=== PATIENT | male | born 1950 | race Caucasian/White ===

== ENCOUNTER 2018-12-11 15:00 | Outpatient (CLI) | payer OTHER ==
[2018-12-11 18:51] LABS: ALBUMIN/GLOBULIN RATIO 0.9 (1.0-2.2); ALKALINE PHOSPHATASE 79 IU/L (42-121); ALT ALANINE AMINOTRANSFERASE < 10 IU/L (10-60); AST ASPARTATE AMINOTRANSFERASE 17 IU/L (10-42); BILIRUBIN,TOTAL 0.7 mg/dL (0.2-1.0); BUN - BLOOD UREA NITROGEN 17 mg/dL (6-20); CALCIUM 9.4 mg/dL (8.5-10.3); CARBON DIOXIDE - CO2 26 mmol/L (21-32); CHLORIDE 100 mmol/L (101-111); CHOLESTEROL 213 mg/dL; CREATININE 1.1 mg/dL (0.6-1.2); GFR - MDRD 67 (>89); GLUCOSE 108 mg/dL (70-100); HDL CHOLESTEROL 70 mg/dL; LDL CHOLESTEROL,CALCULATED 122 mg/dL; LDL CHOLESTEROL,DIRECT 131 mg/dL; LDL/HDL RATIO 1.7 (<3.6); SODIUM 138 mmol/L (135-145); TOTAL PROTEIN 8.4 g/dL (6.7-8.2); VLDL CHOLESTEROL 21 mg/dL
== END 2018-12-11 15:01 | disposition home or self-care (01) ==
LOC: LAB.F 15:00
PROVIDERS: ATTEND Internal Medicine Cardiovascular Disease
DX: N18.3 Chronic kidney disease, stage 3 (moderate) (principal); I10 Essential (primary) hypertension; I50.32 Chronic diastolic (congestive) heart failure; E78.2 Mixed hyperlipidemia; I25.10 Atherosclerotic heart disease of native coronary artery without angina pectoris
CPT/HCPCS: 36415; 80053; 80061; 83721

== ENCOUNTER 2019-06-14 11:30 | Outpatient (CLI) | payer OTHER ==
[2019-06-14 19:45] LABS: SODIUM 140 mmol/L (135-145)
[2019-06-14 19:46] LABS: ALKALINE PHOSPHATASE 88 IU/L (42-121); ALT ALANINE AMINOTRANSFERASE 10 IU/L (10-60); AST ASPARTATE AMINOTRANSFERASE 18 IU/L (10-42); BILIRUBIN,TOTAL 0.3 mg/dL (0.2-1.0); BUN - BLOOD UREA NITROGEN 11 mg/dL (6-20); CALCIUM 9.3 mg/dL (8.5-10.3); CARBON DIOXIDE - CO2 22 mmol/L (21-32); CHLORIDE 104 mmol/L (101-111); CREATININE 1.1 mg/dL (0.6-1.2); GFR - MDRD 67 (>89); GLUCOSE 99 mg/dL (70-100); TOTAL PROTEIN 8.3 g/dL (6.7-8.2)
[2019-06-14 19:47] LABS: ALBUMIN 4.1 g/dL (3.2-5.5); CHOL/HDL RATIO 2.6 (<5.0); CHOLESTEROL 195 mg/dL; HDL CHOLESTEROL 75 mg/dL; LDL CHOLESTEROL,CALCULATED 95 mg/dL; LDL/HDL RATIO 1.3 (<3.6); VLDL CHOLESTEROL 25 mg/dL
== END 2019-06-14 11:31 | disposition home or self-care (01) ==
LOC: LAB.S 11:30
PROVIDERS: ATTEND Internal Medicine Cardiovascular Disease
DX: I12.9 Hypertensive chronic kidney disease with stage 1 through stage 4 chronic kidney disease, or unspecified chronic kidney disease (principal); N18.3 Chronic kidney disease, stage 3 (moderate); E78.2 Mixed hyperlipidemia; I25.10 Atherosclerotic heart disease of native coronary artery without angina pectoris
CPT/HCPCS: 36415; 80053; 80061; 81599; 82172; 83721

== ENCOUNTER 2020-10-28 13:14 | Outpatient (CLI) | payer MEDICARE ==
[2020-10-28 20:14] LABS: ALBUMIN 4.2 g/dL (3.2-5.5); ALBUMIN/GLOBULIN RATIO 1.2 (1.0-2.2); ALKALINE PHOSPHATASE 69 IU/L (42-121); ALT ALANINE AMINOTRANSFERASE 15 IU/L (10-60); AST ASPARTATE AMINOTRANSFERASE 20 IU/L (10-42); BILIRUBIN,TOTAL 0.5 mg/dL (0.2-1.0); BUN - BLOOD UREA NITROGEN 23 mg/dL (6-20); CALCIUM 8.8 mg/dL (8.5-10.3); CARBON DIOXIDE - CO2 27 mmol/L (21-32); CHLORIDE 98 mmol/L (101-111); CHOL/HDL RATIO 2.2 (<5.0); CHOLESTEROL 116 mg/dL; CREATININE 1.7 mg/dL (0.6-1.2); GLUCOSE 80 mg/dL (70-100); HDL CHOLESTEROL 52 mg/dL; LDL CHOLESTEROL,CALCULATED 44 mg/dL; LDL/HDL RATIO 0.8 (<3.6); SODIUM 136 mmol/L (135-145); TOTAL PROTEIN 7.7 g/dL (6.7-8.2); VLDL CHOLESTEROL 20 mg/dL
== END 2020-10-28 13:15 | disposition home or self-care (01) ==
LOC: LAB.S 13:14
PROVIDERS: ATTEND Internal Medicine Cardiovascular Disease
DX: R07.9 Chest pain, unspecified (principal); I11.0 Hypertensive heart disease with heart failure; I47.1 Supraventricular tachycardia; I50.32 Chronic diastolic (congestive) heart failure
CPT/HCPCS: 36415; 80053; 80061; 81599; 82172; 83721

== ENCOUNTER 2021-01-23 12:40 | Outpatient (CLI) | payer MEDICARE ==
--- NOTE | 2021-01-23 13:35 | XRAY Report ---
PROCEDURE: Hip w/Pelvis 2-3V RT INDICATIONS: PAIN IN RIGHT HIP JOIN TECHNIQUE: AP pelvis with lateral view(s) of the bilateral hip(s). COMPARISON: None. FINDINGS: No acute fracture. Chronic femur deformity. There is anatomic alignment. Lumbar spondylosis and face t arthropathy. Mild bilateral hip joint degeneration. Scattered subchondral sclerosis and spurring. Soft tissues: The visualized bowel gas pattern is normal. No suspicious soft tissue calcifications. Vascular calcifications IMPRESSION: Bilateral mild hip joint degeneration. If the patient's pain or other symptoms persist, consider furt her evaluation with MRI. Reviewed by: Mauri Lambert MD on 01/23/2021 1:33 PM PST Approved by: Mauri Lambert MD on 01/23/2021 1:33 PM PST Station ID: [id number]
--- NOTE | 2021-01-23 13:59 | XRAY Report ---
PROCEDURE: Lumbar Spine 2 View INDICATIONS: LOW BACK PAIN TECHNIQUE: 2 views of the lumbar spine were acquired. COMPARISON: None. FINDINGS: No fracture identified. Levoscoliosis is noted. Scattered multilevel endplate spurring and diffuse fa cet arthropathy.Severe narrowing of the L3-L4 disc space. Mild narrowing of the L4-L5 and L5-S1 disc spaces. There is mild narrowing of the L1-L2 disc space. Retrolisthesis of L1 on L2 Scattered vascular calcifications. IMPRESSION: Multilevel lumbar disc degeneration and facet arthropathy most pronounced at L3-L4. Levoscoliosis Reviewed by: Mauri Lambert MD on 01/23/2021 1:58 PM PST Approved by: Mauri Lambert MD on 01/23/2021 1:58 PM PST Station ID: [id number]
[2021-01-23 15:26] LABS: BASOPHILS # (AUTO) 0.1 10^3/uL (0.0-0.1); BASOPHILS % (AUTO) 0.7 %; EOSINOPHILS # (AUTO) 0.6 10^3/uL (0.0-0.7); HCT - HEMATOCRIT 34.6 % (42.0-52.0); HGB - HEMOGLOBIN 10.6 g/dL (14.0-18.0); LYMPHOCYTES # (AUTO) 1.7 10^3/uL (1.5-3.5); LYMPHOCYTES % (AUTO) 12.2 %; MEAN CORPUSCULAR HEMOGLOBIN 29.8 pg (27.0-31.0); MEAN CORPUSCULAR HGB CONC 30.6 g/dL (32.0-36.0); MEAN CORPUSCULAR VOLUME 97.2 fL (80.0-94.0); MEAN PLATELET VOLUME 9.8 fL (7.4-11.4); MONOCYTES # (AUTO) 0.9 10^3/uL (0.0-1.0); MONOCYTES % (AUTO) 6.7 %; NEUTROPHILS # (AUTO) 10.4 10^3/uL (1.5-6.6); PLT - PLATELET COUNT 713 10^3/uL (130-450); RED BLOOD COUNT 3.56 10^6/uL (4.70-6.10); RED CELL DISTRIBUTION WIDTH 13.6 % (12.0-15.0); WHITE BLOOD COUNT 13.7 x10^3/uL (4.8-10.8)
[2021-01-23 15:58] LABS: ALBUMIN 3.4 g/dL (3.2-5.5); ALBUMIN/GLOBULIN RATIO 0.7 (1.0-2.2); BILIRUBIN,TOTAL 0.7 mg/dL (0.2-1.0); CALCIUM 9.6 mg/dL (8.5-10.3); CREATININE 1.7 mg/dL (0.6-1.2); CRP - C-REACTIVE PROTEIN 19.5 mg/dL (0-1.0); POTASSIUM 4.8 mmol/L (3.5-5.0)
== END 2021-01-23 12:41 | disposition home or self-care (01) ==
LOC: DI.S 12:40
PROVIDERS: ATTEND Physician Assistant
DX: M16.11 Unilateral primary osteoarthritis, right hip (principal); M43.16 Spondylolisthesis, lumbar region; M47.816 Spondylosis without myelopathy or radiculopathy, lumbar region; M51.36 Other intervertebral disc degeneration, lumbar region; M48.061 Spinal stenosis, lumbar region without neurogenic claudication; M25.551 Pain in right hip; R68.83 Chills (without fever); N08 Glomerular disorders in diseases classified elsewhere; M54.5 Low back pain
CPT/HCPCS: 36415; 80053; 85025; 85651; 86140

== ENCOUNTER 2021-02-10 09:45 | Outpatient (CLI) | payer MEDICARE | END 2021-02-10 09:46 | disposition critical access hospital (66) | LOC: EMS 09:45 | PROVIDERS: ATTEND Emergency Medicine | DX: R07.9 Chest pain, unspecified (principal) | CPT/HCPCS: A0425; A0427 ==

== ENCOUNTER 2021-02-10 10:14 | Emergency (ER) | payer MEDICARE ==
[2021-02-10 10:31] LABS: BASOPHILS # (AUTO) 0.1 10^3/uL (0.0-0.1); BASOPHILS % (AUTO) 0.5 %; EOSINOPHILS # (AUTO) 0.3 10^3/uL (0.0-0.7); EOSINOPHILS % (AUTO) 2.1 %; HCT - HEMATOCRIT 28.4 % (42.0-52.0); LYMPHOCYTES # (AUTO) 0.8 10^3/uL (1.5-3.5); LYMPHOCYTES % (AUTO) 5.7 %; MEAN CORPUSCULAR HEMOGLOBIN 29.5 pg (27.0-31.0); MEAN CORPUSCULAR HGB CONC 31.7 g/dL (32.0-36.0); MEAN CORPUSCULAR VOLUME 93.1 fL (80.0-94.0); MEAN PLATELET VOLUME 8.4 fL (7.4-11.4); MONOCYTES % (AUTO) 6.7 %; NEUTROPHILS # (AUTO) 12.3 10^3/uL (1.5-6.6); NEUTROPHILS % (AUTO) 84.5 %; PLT - PLATELET COUNT 602 10^3/uL (130-450); RED BLOOD COUNT 3.05 10^6/uL (4.70-6.10); RED CELL DISTRIBUTION WIDTH 13.9 % (12.0-15.0); WHITE BLOOD COUNT 14.6 x10^3/uL (4.8-10.8)
[2021-02-10 10:54] LABS: ALBUMIN 2.7 g/dL (3.2-5.5); ALBUMIN/GLOBULIN RATIO 0.6 (1.0-2.2); BILIRUBIN,TOTAL 0.5 mg/dL (0.2-1.0); CALCIUM 9.2 mg/dL (8.5-10.3); CREATININE 1.2 mg/dL (0.6-1.2); POTASSIUM 4.1 mmol/L (3.5-5.0); TOTAL PROTEIN 6.9 g/dL (6.7-8.2)
--- NOTE | 2021-02-10 11:02 | XRAY Report ---
PROCEDURE: Chest 1 View X-Ray INDICATIONS: Chest Pain TECHNIQUE: One view of the chest was acquired. COMPARISON: None FINDINGS: Surgical changes and devices: None. Lungs and pleura: No pleural effusions or pneumothorax. Lungs are clear. Mediastinum: Mediastinal contours appear normal. Heart size is normal. Bones and chest wall: No suspicious bony lesions. Overlying soft tissues appear unremarkable. IMPRESSION: No acute cardiopulmonary process demonstrated radiographically. Reviewed by: Bahman Angela MD on 02/10/2021 11:01 AM PDT Approved by: Bahman Angela MD on 02/10/2021 11:01 AM PDT Station ID: [id number]
[2021-02-10] MEDS ORDERED: MORPHINE 2 MG/ML CARPUJECT IVP STA (15:05)
[2021-02-10] MEDS ORDERED: IOVERSOL 320 100 ML VIAL IVP ONE ×2 (15:22→15:39)
--- NOTE | 2021-02-10 15:43 | CT Report ---
PROCEDURE: HEAD WO INDICATIONS: forgetfulness, intermittent confusion TECHNIQUE: Noncontrast 4.5 mm thick angled axial sections acquired from the foramen magnum to the vertex. For r adiation dose reduction, the following was used: automated exposure control, adjustment of mA and/or kV according to patient size. COMPARISON: None FINDINGS: Image quality: Excellent. CSF spaces: Basal cisterns are patent. No extra-axial fluid collections. The ventricles are symmet osvaldo in size and shape. Brain: No intracranial bleeds or masses. There is cerebral volume loss for age, with resultant vent ricular and sulcal prominence. There are periventricular and deep white matter chronic small vessel ischemic changes. There is intracranial internal carotid artery and vertebral artery atherosclerosis . Skull and face: Calvarium and visualized facial bones appear intact, without suspicious lesions. Sinuses: Visualized sinuses and mastoids are clear. IMPRESSION: No acute intracranial disease process. Reviewed by: Areli Walker MD, PhD on 02/10/2021 3:42 PM PDT Approved by: Areli Walker MD, PhD on 02/10/2021 3:42 PM PDT Station ID: [id number]
[2021-02-10 15:49] LABS: BILIRUBIN,URINE NEGATIVE (NEGATIVE); CLARITY,URINE CLEAR (CLEAR); GLUCOSE, URINE (UA) NEGATIVE (NEGATIVE); KETONES,URINE (UA) NEGATIVE (NEGATIVE); LEUKOCYTE ESTERASE, URINE NEGATIVE (NEGATIVE); NITRITE,URINE NEGATIVE (NEGATIVE); OCCULT BLOOD,URINE NEGATIVE (NEGATIVE); PROTEIN,URINE NEGATIVE (NEGATIVE); UROBILINOGEN,URINE 0.2 (NORMAL) E.U./dL (NORMAL)
[2021-02-10 16:04] LABS: BACTERIA,URINE None Seen /HPF (None Seen); RBC,URINE None Seen /HPF (0-5); SQUAMOUS EPITHELIAL CELL,UR RARE Squamous (<= Few); WBC,URINE 0-3 /HPF (0-3)
--- NOTE | 2021-02-10 16:05 | CT Report ---
PROCEDURE: Abdomen/Pelvis W INDICATIONS: blood loss, hematuria, abd pain CONTRAST: IV CONTRAST: Optiray 320 ml: 100 PO CONTRAST: *NO PO CONTRAST TECHNIQUE: After the administration of IV contrast, 5 mm thick sections acquired from the diaphragms to the symp hysis. 5 mm thick coronal and sagittal reformats were acquired. For radiation dose reduction, the f ollowing was used: automated exposure control, adjustment of mA and/or kV according to patient size. COMPARISON: None. FINDINGS: Image quality: Excellent. ABDOMEN: Lung bases: Chronic interstitial pulmonary changes as well as emphysema are noted. Heart size is norm al. Solid organs: Liver is enlarged with mild steatosis. There is a low-attenuation lesion within the ri ght hepatic dome measuring 10 x 8 mm. Hounsfield units are greater than down expected for a simple cy st. Gallbladder is unremarkable Biliary system is non dilated. Pancreas enhances normally. There is a heterogeneously enhancing mass within the left adrenal gland measuring 53 mm AP by 33 mm transvers e. An adjacent heterogeneously enhancing nodules noted posteriorly measuring 8 mm seen on series 3 im age 22. Kidneys demonstrate normal size and enhancement, without hydronephrosis. Peritoneum and bowel: Bowel loops are nonobstructed. There is a focal area of colonic thickening see n within the sigmoid colon on series 6 images 27 through 33. No free fluid or air. Nodes and vessels: No retroperitoneal or mesenteric adenopathy by size criteria. Aorta and inferior vena cava are normal in size. Miscellaneous: There is a fat-containing right left lateral abdominal hernia with diastases of the re ctus musculature measuring 20 mm.. PELVIS: Genitourinary: Bladder wall thickness is normal. The prostate gland is enlarged. There is a focus o f soft tissue density identified in the inferior posterior bladder measuring approximately 12 mm. Thi s appears to become contiguous with the mildly enlarged prostate gland. Miscellaneous: No inguinal hernias or adenopathy. An enhancing mass within the pelvic floor muscula ture on the left is present measuring 32 mm AP by 29 mm transverse. Bones: There is a soft tissue lesion with complete destruction of the posterior right iliac bone. Ant erior vertebral body lucency with cortical destruction is noted at L1. This is seen on series 3 image 28. In addition, in the posterior right lateral aspect of L1 there is a second lytic lesion with cor tical bony compromise measuring 15 x 15 mm. It is seen on series 3 image 25. No vertebral body compr ession fractures. IMPRESSION: 1. No acute intra-abdominal or pelvic process. 2. Destructive soft tissue mass within the right iliac bone as well as areas of lucency and cortical destruction in the L1 vertebral body highly suggestive of metastatic disease. 3. Enhancing mass within the left pelvic floor musculature as above. Appearance is highly concerning for neoplasm, whether soft tissue malignancy or metastatic disease. 4. Heterogeneously enhancing left adrenal mass with satellite nodule highly concerning for neoplastic disease, whether primary or metastatic. 5. Low-attenuation within the right hepatic dome inconsistent with simple cyst. This could represent a focus of metastatic disease, complex cyst or hemangioma. Given the above findings, there is signifi cant concern for metastatic focus. 6. Small focus of soft tissue density within the inferior posterior bladder appearing to become shane guous with a mildly enlarged prostate gland. This could represent prostate hypertrophy. However, give n history of hematuria, bladder lesion cannot be excluded and cystoscopy is recommended. 7. Nonspecific focus of sigmoid colonic thickening as above. While this could be sales representative education courses of in complete distention, the appearance of luminal narrowing as well as above features does raise concern for neoplasm. Further evaluation with colonoscopy is recommended. Reviewed by: Matilde East MD on 02/10/2021 4:04 PM PDT Approved by: Matilde East MD on 02/10/2021 4:04 PM PDT Station ID: [id number]
[2021-02-10 16:34] VITALS: BP 119/54
--- NOTE | 2021-02-10 16:47 | ED Physician Documentation ---
History of Present Illness - Stated complaint Stated Complaint: CP, ABD PX - Chief complaint Chief Complaint: Cardiac - History obtained from History obtained from: Patient, Family () - Additonal information Additional information: 70-year-old man with past medical history of coronary artery disease status post 3 stents, diverticulitis and possible abdominal mass status post resection via colectomy with ileostomy and reversal in February of this year, presents with constipation over the past 3 days, nausea and intermittent chest pain over the past week. Patient states that he had left-sided chest pain this morning that did not improve with nitroglycerin and was associated with nausea. It resolved on its own upon arrival to the emergency room. Patient was given nitroglycerin, Zofran, and 325 aspirin by EMS.Upon my interview, patient states that he feels fine and asked "can I go home now?". Review of Systems Ten Systems: 10 systems reviewed and negative Constitutional: denies: Fever Cardiac: reports: Chest pain / pressure Respiratory: denies: Dyspnea, Cough GI: reports: Nausea PD PAST MEDICAL HISTORY - Allergies Allergies/Adverse Reactions: Allergies Allergy/AdvReac Type Severity Reaction Status Date / Time No Known Drug Allergies Allergy Verified 02/10/21 10:29 - Social History Does the pt smoke?: No Smoking Status: Never smoker PD ED PE NORMAL - Vitals Vital signs reviewed: Yes - General General: Alert and oriented X 3, No acute distress, Other (pale appearing) - HEENT HEENT: Atraumatic, PERRL, EOMI, Moist mucous membranes - Neck Neck: Supple, no meningeal sign - Cardiac Cardiac: RRR - Respiratory Respiratory: No respiratory distress, Clear bilaterally - Abdomen Abdomen: Non tender, Non distended - Male Male : Deferred - Rectal Rectal: Pt declined - Derm Derm: Other (pale appearing) - Extremities Extremities: No deformity - Neuro Neuro: Alert and oriented X 3 - Psych Psych: Normal mood, Normal affect Results - Vitals Vitals: Vital Signs - 24 hr 02/10/21 02/10/21 02/10/21 10:29 11:46 13:04 Temperature 36.4 C L 37.2 C Heart Rate 77 66 56 L Respiratory 16 14 13 Rate Blood Pressure 129/68 108/45 L 107/49 L O2 Saturation 100 95 96 02/10/21 02/10/21 02/10/21 14:42 16:00 16:29 Temperature 36.0 C L Heart Rate 63 84 77 Respiratory 10 L 17 18 Rate Blood Pressure 117/75 105/47 L O2 Saturation 100 100 100 02/10/21 02/10/21 16:33 16:45 Temperature Heart Rate 73 Respiratory 13 Rate Blood Pressure 119/54 L 119/54 L O2 Saturation 100 Oxygen O2 Source Room air - Labs Labs: Laboratory Tests 02/10/21 02/10/21 02/10/21 10:27 10:27 10:27 WBC 14.6 H RBC 3.05 L Hgb 9.0 L Hct 28.4 L MCV 93.1 MCH 29.5 MCHC 31.7 L RDW 13.9 Plt Count 602 H MPV 8.4 Neut # (Auto) 12.3 H Lymph # (Auto) 0.8 L Union # (Auto) 1.0 Eos # (Auto) 0.3 Baso # (Auto) 0.1 Absolute Nucleated RBC 0.00 Nucleated RBC % 0.0 Sodium 132 L Potassium 4.1 Chloride 99 L Carbon Dioxide 24 Anion Gap 9.0 BUN 14 Creatinine 1.2 Estimated GFR (MDRD) 60 L Glucose 112 H Calcium 9.2 Total Bilirubin 0.5 AST 13 ALT 11 Alkaline Phosphatase 68 Troponin I High Sens 5.2 Total Protein 6.9 Albumin 2.7 L Globulin 4.2 Albumin/Globulin Ratio 0.6 L Lipase 19 L Urine Color Urine Clarity Urine pH Ur Specific [place] Urine Protein Urine Glucose (UA) Urine Ketones Urine Occult Blood Urine Nitrite Urine Bilirubin Urine Urobilinogen Ur Leukocyte Esterase Urine RBC Urine WBC Ur Squamous Epith Cells Urine Bacteria Urine Culture Comments 02/10/21 02/10/21 13:36 15:41 WBC RBC Hgb Hct MCV MCH MCHC RDW Plt Count MPV Neut # (Auto) Lymph # (Auto) Union # (Auto) Eos # (Auto) Baso # (Auto) Absolute Nucleated RBC Nucleated RBC % Sodium Potassium Chloride Carbon Dioxide Anion Gap BUN Creatinine Estimated GFR (MDRD) Glucose Calcium Total Bilirubin AST ALT Alkaline Phosphatase Troponin I High Sens 7.7 Total Protein Albumin Globulin Albumin/Globulin Ratio Lipase Urine Color YELLOW Urine Clarity CLEAR Urine pH 7.0 Ur Specific [place] <=1.005 Urine Protein NEGATIVE Urine Glucose (UA) NEGATIVE Urine Ketones NEGATIVE Urine Occult Blood NEGATIVE Urine Nitrite NEGATIVE Urine Bilirubin NEGATIVE Urine Urobilinogen 0.2 (NORMAL) Ur Leukocyte Esterase NEGATIVE Urine RBC None Seen Urine WBC 0-3 Ur Squamous Epith Cells RARE Squamous Urine Bacteria None Seen Urine Culture Comments NOT INDICATED PD MEDICAL DECISION MAKING - ED course ED course: 70-year-old man presented initially stating only that he has been having mild intermittent CP. After full ACS workup was completed I contacted his Blanca who states he is an unreliable historian and has also been experiencing abdominal pain and had abnormal bloodwork and urine with blood in it, had been told a week ago to come to the ED by his PCP, but she was only able to convince him to do so now. Stool study by PCP was negative for occult blood. She also said he has been intermittently confused over the past couple days. Patient appears to have evidence of metastatic cancer in the abdomen on CT, with arsh ntrending hemoglobin on lab work as well as other derangements in his CBC. The patient is refusing further care at this time and would like to go home. He is alert and oriented and demonstrating capacity. I discussed palliative care resources with him as well as the need for urgent follow-up with his primary Dr. Mccarthy at the polyclinic in [place]. Strict return precautions given. discussed results with Blanca with patient's permission. Departure - Departure Disposition: Home, Self Care Clinical Impression: Metastatic cancer, Anemia Instructions: Care Palliative Comments: Mr. Thompson, it was a pleasure taking care of you. You were seen in the emergency department for chest pain and abdominal pain. You had some abnormalities on your lab work which prompted me to order a CT of the abdomen looking for cancer and your results are enclosed below. You do have spots that appear to be cancer-related in the intestines, liver, bladder, and adrenal gland. Please see Dr. Mccarthy for next steps. Please also ask your doctor about palliative care resources and information. We have a palliative care nurse practitioner on [facility] who can be reached at [phone]. She is absolutely wonderful and I highly recommend calling this week to coordinate your care going forward. Your blood level is going down (hemoglobin of 9), meaning you are probably having some internal bleeding. If you become weak or lightheaded or have new or worsening symptoms then please return to the emergency room immediately. EXAM: [id number] CT/ABPEW ([id number]) PROCEDURE: Abdomen/Pelvis W INDICATIONS: blood loss, hematuria, abd pain CONTRAST: IV CONTRAST: Optiray 320 ml: 100 PO CONTRAST: *NO PO CONTRAST TECHNIQUE: After the administration of IV contrast, 5 mm thick sections acquired from the diaphragms to the symphysis. 5 mm thick coronal and sagittal reformats were acquired. For radiation dose reduction, the following was used: automated exposure control, adjustment of mA and/or kV according to patient size. COMPARISON: None. FINDINGS: Image quality: Excellent. ABDOMEN: Lung bases: Chronic interstitial pulmonary changes as well as emphysema are noted. Heart size is normal. Solid organs: Liver is enlarged with mild steatosis. There is a low-attenuation lesion within the right hepatic dome measuring 10 x 8 mm. Hounsfield units are greater than down expected for a simple cyst. Gallbladder is unremarkable Biliary system is non dilated. Pancreas enhances normally. There is a heterogeneously enhancing mass within the left adrenal gland measuring 53 mm AP by 33 mm transverse. An adjacent heterogeneously enhancing nodules noted posteriorly measuring 8 mm seen on series 3 image 20. Kidneys demonstrate normal size and enhancement, without hydronephrosis. Peritoneum and bowel: Bowel loops are nonobstructed. There is a focal area of colonic thickening seen within the sigmoid colon on series 6 images 27 through 33. No free fluid or air. Nodes and vessels: No retroperitoneal or mesenteric adenopathy by size criteria. Aorta and inferior vena cava are normal in size. Miscellaneous: There is a fat-containing right left lateral abdominal hernia with diastases of the rectus musculature measuring 20 mm.. PELVIS: Genitourinary: Bladder wall thickness is normal. The prostate gland is enlarged. There is a focus of soft tissue density identified in the inferior posterior bladder measuring approximately 12 mm. This appears to become contiguous with the mildly enlarged prostate gland. Miscellaneous: No inguinal hernias or adenopathy. An enhancing mass within the pelvic floor musculature on the left is present measuring 32 mm AP by 29 mm transverse. Bones: There is a soft tissue lesion with complete destruction of the posterior right iliac bone. Anterior vertebral body lucency with cortical destruction is noted at L1. This is seen on series 3 image 28. In addition, in the posterior right lateral aspect of L1 there is a second lytic lesion with cortical bony compromise measuring 15 x 15 mm. It is seen on series 3 image 25. No vertebral body compression fractures. IMPRESSION: 1. No acute intra-abdominal or pelvic process. 2. Destructive soft tissue mass within the right iliac bone as well as areas of lucency and cortical destruction in the L1 vertebral body highly suggestive of metastatic disease. 3. Enhancing mass within the left pelvic floor musculature as above. Appearance is highly concerning for neoplasm, whether soft tissue malignancy or metastatic disease. 4. Heterogeneously enhancing left adrenal mass with satellite nodule highly concerning for neoplastic disease, whether primary or metastatic. 5. Low-attenuation within the right hepatic dome inconsistent with simple cyst. This could represent a focus of metastatic disease, complex cyst or hemangioma. Given the above findings, there is significant concern for metastatic focus. 6. Small focus of soft tissue density within the inferior posterior bladder appearing to become contiguous with a mildly enlarged prostate gland. This could represent prostate hypertrophy. However, given history of hematuria, bladder lesion cannot be excluded and cystoscopy is recommended. 7. Nonspecific focus of sigmoid colonic thickening as above. While this could be financial services sales representative of incomplete distention, the appearance of luminal narrowing as well as above f eatures does raise concern for neoplasm. Further evaluation with colonoscopy is recommended. Reviewed by: Matilde East MD on 02/10/2021 4:04 PM PDT Approved by: Matilde East MD on 02/10/2021 4:04 PM PDT
== END 2021-02-10 16:59 | disposition home or self-care (01) ==
LOC: EDUNIT# → ED 10:14
DX: C79.9 Secondary malignant neoplasm of unspecified site (principal); D64.9 Anemia, unspecified; R41.0 Disorientation, unspecified
CPT/HCPCS: 36415; 70450; 71045; 74177; 80053; 81001; 83690; 84484; 85025; 93005; 96374; 99284; Q9967; 87086

== ENCOUNTER 2021-02-16 14:15 | Outpatient (CLI) | payer MEDICARE ==
--- NOTE | 2021-02-16 16:36 | CONSULTATION NOTE ---
Palliative Care Consultation - Referral Referring Provider: Ladan Montalvo Time of Visit: 4093-8493 Referral setting: Home Referral Reason: Pain of neoplastic origin/Met CA of unknown primary/AMS - Information Sources Records reviewed: Previous records reviewed History/Review of Systems obtained from: Patient, Family ( provided most of ROS) Exam limitations: Clinical condition (patient with fluctuating levels of confusion/alertness) - History of Present Illness Brief History of Present Illness: This is a 70-year-old gentleman who presented to the ER with pelvic/abdominal pain, he had been having worsening right hip pain. A CT scan revealed destructive soft tissue mass within the right iliac bone as well as areas of lucency and cortical disc traction and [place] full body suggestive of metastatic disease. He also has an enhancing mass within the left pelvic floor, left adrenal mass with satellite nodular concern for neoplasm, concern for soft tissue density within the inferior posterior bladder thickening and nonspecific sigmoid colonic thickening. He continues to have severe pain, had presented to oncology, given his understanding of poor prognosis and his escalating pain, is not interested in biopsy or further work-up for treatment. reports he has had increased confusion since mid last week, he does fluctuate as far as coming in and out. He is fairly consistent in his expression of his goals, he does not want to be in the hospital. He is not interested at this point in time and treatment, even if it would improve his quality of life and possibly quantity. reports he is continue to decline both cognitively and functionally fairly quickly over the last several days, he was started on MS Contin 15 mg twice daily, with oxycodone 10 mg every 6 hours without any relief. He has long-term been on methadone 20 mg every a.m., for RA and fibromyalgia pain, he has in the past been up on methadone as high as 270 mg per his report. Patient also has an addictive vapor, uses cannabis, has long- term pain syndromes, and had polio when he was 5. He had been having worsening pain, but refusing to go get further work-up, until they had called 911 and ended up with his emergency room visit on 02/10. Patient also had significant issues regarding his presenting with diverticulitis and 2017, he had gotten himself down to 107 pounds, has slowly recovered, and able to have a reversal in 02/2019. At that point in time as best they know there was no evidence of malignancy. Patient does continue to do poorly and has not really recovered back to his previous baseline which was fairly sedentary and mild to poor health. Patient is exhibiting severe pain behaviors unable to bear weight on right side nor sit comfortably on the chair or couch, he has not slept well for the last 24 hours related to the pain. He has not been eating or drinking other than a few sips and bites of food here and there. He has had constipation but is currently controlled with BM today with use of laxative. He does have frequent urination, fluctuating mental status, and mild agitation. Had spoken to radiation oncologist prior to arrival, he would have been willing to radiate without tissue biopsy, but after examination of the current situation, patient would not be able to tolerate ride or work-up to be able to be simulated and treated. Patient does not want to go anywhere, we discussed in the context of this and 's concerns, patient most likely had days to weeks, would recommend hospice support for more aggressive pain management and family support. Medical/Surgical History - Past Medical History Cardiovascular: reports: None, MT (10/2010; NSTEMI 11/2014) Respiratory: reports: COPD Neuro: Other (hx of polio; fibromyalgia) Endocrine/Autoimmune: reports: None GI: reports: Diverticulitis : reports: Benign prostate hypertrophy Psych: reports: Depression, Anxiety Musculoskeletal: reports: Osteoarthritis, Fibromyalgia, Rheumatoid arthritis, Fatigue, Scoliosis, Chronic back pain Derm: reports: None MRSA Hx?: No - Past Surgical History General: reports: Gastric surgery Ortho: reports: Other (removed from femur 2016) Cardiovascular: reports: Coronary stent, Other (carotid enocartectomy 05/2009) - Substance History Use: Uses substance without health or social issues: Alcohol (hx of abuse), Cannabis, Other (vaps continously; was a smoker for 40+ years) Social History - Living Situation Living arrangement: At home Living Situation: With spouse/s.o. (Blanca) Support System: Patient and are going to celebrate their 29 [place] on February 19, [place] They do have three daschhounds, patient has been disabled. Blanca just retired last year, but has been busy moving her parents into an assisted living in [place]. Patient commuted to [place] for multiple years, they live in a one-story house. Patient does have a daughter who lives in [facility], does appear there is some estrangement, and lost a daughter in 1998. Family History - Family History Family History: Mother: , Diabetes, Type 2, Hypertension ( at 80; stopped meds), Father: , COPD/Emphysema ( at 79 in sleep) Medications/Allergies - Medications Home Medications: Ambulatory Orders Medication Instructions Recorded Confirmed Apixaban [Eliquis] 5 mg PO BID 02/13/21 02/16/21 Diazepam [Valium] 2.5 mg PO Q6HR PRN 02/13/21 02/16/21 Lisinopril [Prinivil] 5 mg PO DAILY 02/13/21 02/16/21 Methadone [Methadone Hcl] 10 mg PO TID 02/13/21 02/16/21 Metoprolol Succinate [Toprol Xl] 100 mg PO DAILY 02/13/21 02/16/21 Nitroglycerin [Nitrostat] 0.4 mg PO PRN PRN 02/13/21 02/16/21 Oxycodone HCl [Oxycontin] 10 mg PO Q3HR PRN MDD may increase 02/13/21 02/16/21 to 2 tabs Senna [Senokot] 2 tab PO QPM MDD titrate to effect 02/16/21 02/16/21 dexAMETHasone [Decadron] 4 mg PO DAILY MDD bid x 3 days 02/16/21 02/16/21 polyethylene glycoL 3350 [Miralax] 17 gm PO DAILY 02/16/21 02/16/21 - Allergies Allergies/Adverse Reactions: Allergies Allergy/AdvReac Type Severity Reaction Status Date / Time No Known Drug Allergies Allergy Verified 02/13/21 15:25 Review of Systems - Constitutional Constitutional: reports: Fatigue (worsening), Chills, Weakness, Poor appetite, Night sweats, Weight loss (10-15 pounds this last month). denies: Fever - Eyes Eyes: reports: Vision loss - Ears, Nose & Throat Ears, Nose & Throat: reports: Hearing loss, Dry mouth - Cardiovascular Cardiovascular: reports: Exertional dyspnea, Decr. exercise tolerance. denies: Chest pain, Edema - Respiratory Respiratory: reports: SOB at rest, SOB with exertion. denies: Cough - Gastrointestinal Gastrointestinal: reports: Abdominal pain, Constipation (reports did go to day) - Genitourinary Genitourinary: reports: Frequency, Urgency. denies: Hematuria - Musculoskeletal Musculoskeletal: reports: Muscle pain, Back pain, Muscle aches, Stiffness, Limited range of motion, Muscle weakness, Assistive devices (walker), Other (shuffled gait; residual from polio) - Integumentary Integumentary: reports: Rash (fungal underarms), Dryness - Neurological Neurological: reports: General weakness, Headache, Memory problems (about one week; prior to starting any new meds; has progressively become more confused; last few days with mild agitation as well), Abnormal gait, Slurred speech - Psychiatric Psychiatric: reports: Depression, Anxiety, Aggitation - Endocrine Endocrine: reports: Intolerance to cold - Hematologic/Lymphatic Hematologic/Lymph: reports: Anemia - All Other Systems All Other Systems: reports: Other (limited by fluctuating mental status) Physical Exam - Vital Signs Temperature: 97.7 C Pulse Rate: 67 Respiratory Rate: 18 O2 Saturation: 95 (ra @ rest) Blood Pressure: 108/52 - Physical Exam General Appearance: positive: Moderate distress (from pain), Lethargic, Cachetic Eyes Bilateral: positive: No scleral icterus Neck: positive: Trachea midline Cardiovascular: positive: Regular rate & rhythm Respiratory: positive: Diminished throughout. negative: Wheezes, Rales, Rhonchi Abdomen: positive: Soft, Tenderness (with only mild palpation) Skin: positive: Pallor, Dryness, Rash (arms) Extremities: positive: No pedal edema, Other (mild deformity with polio) Neurologic/Psychiatric: positive: Disoriented to time, Weakness, Slurred/abnml speech, Depressed mood/affect, Flat affect Palliative Care - POLST Patient has POLST: Yes POLST Status: DNR, Comfort Measures (completed at visit) Pain: Pain worsening, Location (right hip most severe; has generalized "all over" pain), Severity (8/10) Tiredness/Fatigue: Moderate (4-6) Drowsiness/Sedation: Moderate (4-6) Nausea: Moderate (4-6) Anorexia: Moderate (4-6), Weight loss Dyspnea: Severe (7-10) Depression: Severe (7-10) Anxiety: Severe (7-10) Feelings of wellbeing/Perceived Quality of Life: Poor, Worsening Sleep: Sleeps poorly (related to pain) Constipation: Yes, Opoid induced, Intermittent constipation Performance Status: Patient has had declining functional status, was sedentary at baseline. Had a couple falls last week, this he is using a walker now. He may need to come off Eliquis because of fall risk, he seems quite frail and shaky. - Palliative Care Discussion: Patient with fluctuating mental status, does appear to understand he has serious illness to her. When discussed patient most likely has limited life expectancy of days to weeks, he was not surprised. When asked if he is afraid of dying, he deflected and said he is excited to meet "baby teases". Patient does admit that he was not surprised of diagnosis, he is been a heavy smoker and drinker most of his life, does feel at some level he has brought this on himself. He has a strong inversion to hospitals, given his experience with polio as a child, as well as having waited last time too long as well for his diverticulitis and recovering from that included a colostomy. His primary goal is to get his pain under control, he would like to be at home, in the context of this we discussed the hospice team and support for both he and Blanca. We did complete a POLST with DN AR and comfort measures. After much discussion given his priorities, goals of care, will do urgent referral to hospice for goal concordant care. They would benefit from more aggressive pain management and oversight, as well as equipment and interdisciplinary team. Did talk to Blanca, she is quite frustrated with him, as he has been sick for several weeks and not open to pursuing work-up or care. She is very frightened that he is near , then expected, discussed with hospice on board, she would not need to call 911. She reports her mother who is 86 is actually in good health, and could provide her some support. She is quite exhausted from patient's poor nights, and confusion with getting up and down quite a bit.Fortunately hospice had an opening this afternoon for urgent referral, will go ahead and refer and get started. had cared for John and in 2004, they did have hospice so she does understand the transition, and hospice services. 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 Patient will not be receiving work-up, so will be a cancer of unknown primary. He has had rapid functional and cognitive decline, and worsening symptom burden. He is quite frail, and most likely has days to weeks. Given patient's goals of care, which are not to return the hospital, not to pursue treatment or further work-up but comfort measures only, will transition to hospice. Given his acute pain crisis, urgent referral arranged for this afternoon. Recommendations/Counseling Done: 1. Pain of neoplastic origin. Patient has had long-term exposure to opioids, has been on 20 mg of methadone for over 20 years, has been as high as 270 mg but was weaned back, to baseline supportive dose. Patient has been a drinker/smoker in the past, as well as continues to vape and use cannabis. Will simplify things regarding long-acting medication, and use of methadone for long-acting and titrate accordingly. At this point will titrate methadone and to 10 mg 3 times daily, and shorten interval for oxycodone 10 mg to every 3 hours as needed for breakthrough pain, can use 2 tabs if ineffective. And will titrate up methadone based on use of breakthrough medication dose using. Will discontinue the morphine as this is making it more complicated, and may be adding to his confusion. Patient was also started on low-dose gabapentin, again we will discontinue this as it is not added to his pain relief. Will order dexamethasone to trial 4 mg twice a day for 3 days for boost, and then 4 mg daily, patient is on Eliquis may need to have this discontinued particularly related to his fall/bleeding risk. We will see how he does over the next couple days. 2. Agitation. This is multifactorial, patient with mild confusion that has been persistent over greater than a week, patient's metabolites were stable, but was anemic. Patient does have diazepam in the home, recommended could use half tab of 5 mg every 6 hours as needed to augment. Did consult with hospice nurse, who is coming, will go ahead and order help. All 2 mg per mill and order 1 mg every 4 hours as needed for agitation, this we also can use in for nausea. 3. Weight loss. Patient is quite thin and cachectic at baseline, has lost another 15 to 20 pounds over the last couple months. Have trialed different supplements, patient with anorexia and no appetite. Will trial dexamethasone to see if will be of assistance. Counseling provided for foods for comfort focus only, did provide hard choices for loving people to as a resource. She has cared for her 's aunt, with hospice support and aware of impending decline. She will also get further support and instruction from hospice. 4. Advanced care planning. Explored patient's goals, he does understand he has cancer, does understand with no intervention most likely has days to weeks, discussed if there is anything he wanted to do, he would like to be at home. There was nobody he could identify a he wanted to see her anything he wanted to accomplish. He denies any fears or concerns, reports he is not a evangelical radha, though is looking forward to support and further instruction on how best to manage his pain and behaviors. POLST with DN AR/comfort measures was completed, and left in the home. Reviewed if he was to pass tonight, hospice will be on board, and she can call the hospice number she does not need to call 911. Report given to admitting hospice nurse. 75 minutes with greater than 50% of this done in counseling regarding goals of care, pain and symptom management, coordination of care with hospice team.
== END 2021-02-16 14:16 | disposition home or self-care (01) ==
LOC: PC 14:15
PROVIDERS: ATTEND Nurse Practitioner Adult Health
DX: Z51.5 Encounter for palliative care (principal); G89.3 Neoplasm related pain (acute) (chronic); C79.51 Secondary malignant neoplasm of bone; R45.1 Restlessness and agitation; R41.0 Disorientation, unspecified; R63.4 Abnormal weight loss; R63.0 Anorexia; Z79.891 Long term (current) use of opiate analgesic; Z87.891 Personal history of nicotine dependence; F10.11 Alcohol abuse, in remission; Z66 Do not resuscitate
CPT/HCPCS: 99345